=== PATIENT | male | born 1985 | race Two or more races ===

== ENCOUNTER 2025-01-10 17:12 | Emergency (ER) | payer SELFPAY ==
[~2025-01-10] VITALS: Ht 170.2 cm; Wt 94.7 kg
[2025-01-10 17:38] VITALS: BP 125/80; PULSE 94; RESP 18; TEMP 98.2; O2SAT 99
== END 2025-01-10 18:32 | disposition left against medical advice (07) ==
LOC: ER 17:12
DX: S61.215A Laceration without foreign body of left ring finger without damage to nail, initial encounter (principal); X58.XXXA Exposure to other specified factors, initial encounter; Z53.21 Procedure and treatment not carried out due to patient leaving prior to being seen by health care provider; Y93.89 Activity, other specified; Y92.89 Other specified places as the place of occurrence of the external cause; Y99.8 Other external cause status